=== PATIENT | female | born 1945 | race Caucasian/White ===

== ENCOUNTER → 2018-12-06 | Outpatient (CLI) | payer BC | LOC: M.MRI 11:04 | DX: S83.241A Other tear of medial meniscus, current injury, right knee, initial encounter (principal); M17.11 Unilateral primary osteoarthritis, right knee; M94.261 Chondromalacia, right knee; M25.461 Effusion, right knee; M25.761 Osteophyte, right knee; X58.XXXA Exposure to other specified factors, initial encounter; Y93.89 Activity, other specified; Y92.89 Other specified places as the place of occurrence of the external cause; Y99.8 Other external cause status ==

== ENCOUNTER 2019-01-03 06:57 | Inpatient (IN) | payer BC ==
[2018-12-22 09:16] LABS: HEMATOCRIT 38.4 % (37.0-47.0); MCH 31.7 pg (26.0-34.0); MCHC 33.8 g/dL (28.0-37.0); MCV 93.8 fL (80.0-100.0); MPV 7.9 fl. (7.2-11.1); RBC 4.09 mil/uL (4.20-5.00); RDW-CV 14.9 % (10.5-14.5)
[2018-12-22 09:22] LABS: PROTIME 10.5 Seconds (9.20-11.50)
[2018-12-22 09:31] LABS: ALBUMIN 3.3 g/dL (3.4-5.0); CALCIUM 8.9 mg/dL (8.5-10.1); CREATININE 1.1 mg/dL (0.6-1.3); TOTAL BILIRUBIN 0.3 mg/dL (<0.1-1.0); TOTAL PROTEIN 6.6 g/dL (6.4-8.2)
[2018-12-22 10:43] LABS: URINE CLARITY CLEAR; URINE COLOR YELLOW
[2018-12-22 10:44] LABS: URINE GLUCOSE-RANDOM NEGATIVE (Negative); URINE KETONES NEGATIVE (Negative); URINE PROTEIN NEGATIVE (Negative); URINE SPECIFIC GRAVITY <= 1.005 (1.005-1.030)
[2018-12-22 10:45] LABS: URINE BILIRUBIN NEGATIVE (Negative); URINE BLOOD NEGATIVE (Negative); URINE LEUKOCYTES-REFLEX 1+ (Negative); URINE NITRITE-REFLEX NEGATIVE (Negative); URINE UROBILINOGEN 0.2 E.U./dl (0.2-1.0)
[2018-12-22 10:48] LABS: BACTERIA-REFLEX None Seen /HPF (None Seen); CASTS None Seen /LPF (None Seen); CRYSTALS None Seen /LPF (None Seen); MUCUS None Seen strn/LPF (None Seen); SQUAMOUS 0-3 Few /LPF (0-3); URINE RBC None Seen /HPF (0-2); URINE WBC-REFLEX 0-5 Rare /HPF (0-5)
--- NOTE | 2018-12-22 17:21 | EKG ---
[place] [address] ELECTROCARDIOGRAM REPORT Name: OSVALDO MORAN ANETA Room: [address]#: [id number] Admission: 01/03/19 Attend Phys: Marshal España Discharge: 01/05/19 Date of : 47 Report #: [id number] THIS REPORT FOR: //name// [facility] Test Date: 2018-12-22 Test Time: 09:29:56 Pat Name: OSVALDO MORAN Department: Room: Gender: Russian Language Professor: RT : 1945 Requested By: Matty Acevedo Order Number: [id number] MD: Austyn Jameson Measurements Intervals [place] Rate: 54 P: 17 [place]: 153 QRS: 34 QRSD: 93 T: 42 QT: 476 QTc: 452 Interpretive Statements Sinus rhythm No previous ECG available for comparison Electronically Signed On 12-22-2018 17:21:06 CDT by Austyn Jameson [email or web address] <ELECTRONICALLY SIGNED> By: Austyn Jameson MD, FACC 12/22/18 1721 0929 8 Austyn Jameson MD, FACC /EPI
[~2019-01-03] VITALS: Ht 154.9 cm; Wt 86.2 kg
[~2019-01-03 06:57] MED LIST: AZOPT OPHTH1 %/10 M1 TOP; BIOTIN10000 MC1 PO; CARDIZEM CD120 MG PO; FUROSEMIDE 40 M40 M1 PO; GLIPIZIDE 10 MG10 MG PO; HYDROCODON-ACE1 EAC7 PO; LASIX 20 MG TAB20 MG PO; LIPITOR40 MG PO; LOPRESSOR50 PO; METFORMIN HCL500 MG PO; NEURONTIN 400400 M1 PO; PIOGLITAZONE15 MG; ZESTRIL40 MG PO; ZYLOPRIM300 MG PO
[2019-01-03] MEDS ORDERED: LORCET 5-325 M1 EACH PO (10:31)
[2019-01-03] MEDS ORDERED: AZOPT OPHTH1 %/10 M1 EA. EYE (10:32)
[2019-01-03 14:50] VITALS: BP 134/46
[2019-01-03 16:00] VITALS: BP 128/53
--- NOTE | 2019-01-03 17:12 | NUR ---
PATIENT ARRIVED TO UNIT AT 1445. ALERT AND ORIENTED X4. ASSESSMENT COMPLETED AND CHARTED. VSS ON 2 LITERS 02. MINIMAL PAIN UPON ARRIVAL, STARTED ORAL PAIN MEDICATION BEFORE DINNER. FLUIDS STARTED AND INFUSED ORDERED. PATIENT USED BEDPAN TO VOID WITHOUT ISSUE. FALL PRECAUTIONS IN PLACE. CALL LIGHT WIHTIN REACH. HOURLY ROUNDS COMPLETED. NURSING WILL CONTINUE TO MONITOR.
[2019-01-03 19:27] VITALS: BP 158/63
--- NOTE | 2019-01-03 19:30 | NUR ---
RESTING QUIETLY IN BED WITH VISITORS PRESENT. 02 NC AT TWO LITERS. C[address]. HEMOVAC INTACT WITH SMALL AMOUNT OF BRIGHT RED DRAINAGE PRESENT. YARY WRAP AROUND RIGHT LEG DRY/INTACT. CALL LIGHT WITHIN REACH. BILATERAL FOOT PUMPS. POLAR PACK TO RIGHT KNEE.
[2019-01-04] VITALS: BP 148/78
[2019-01-04 04:00] VITALS: BP 166/68
[2019-01-04 05:04] LABS: HEMATOCRIT 33.6 % (37.0-47.0); HEMOGLOBIN 11.5 gm/dL (12.0-15.0)
--- NOTE | 2019-01-04 06:48 | NUR ---
UP DURING THE NIGHT TO THE BEDSIDE COMMODE TO VOID. RELIEF WITH PAIN MEDS. IV FLUIDS INFUSING. HOURLY ROUNDING IN PROGRESS.
[2019-01-04 07:50] VITALS: BP 151/60
--- NOTE | 2019-01-04 08:49 | NUR ---
DEFER TO PT. NO OT AT THIS TIME UNLESS REFERRED BY PT
--- NOTE | 2019-01-04 12:00 | NUR ---
PT.UP IN CHAIR. DAUGHTER,KHOA,AT BEDSIDE. PT.LIVES AT HOME WITH HER . HE WILL BE ABLE TO HELP HER AT DISCHARGE. DAUGHTER KHOA WILL BE THE ONE TO TAKE HER HOME AND CAN HELP HER ALSO IF NEEDED. PT.HAS A FRONT WHEEL WALKER IN ROOM. WOULD LIKE TO USE [facility] FOR 2 WEEKS AFTER DISCHARGE. CM FAXED REFERRAL TO [facility] . CALLED IN PRESCRIPTION, WRITTEN, TO [facility]ARM[facility] [place]. WILL CALL BACK TO CHECK COPAY.
[2019-01-04 16:35] VITALS: BP 154/59
--- NOTE | 2019-01-04 18:07 | NUR ---
ASSUMED CARE OF PATIENT AT APPROX 0730. ALERT AND ORIENTED X4. ASSESSMENT COMPLETED AND CHARTED. VSS ON ROOM AIR. PAIN MANAGED WITH HYDROCODONE AND OXY IR
--- NOTE | 2019-01-04 18:09 | NUR ---
ASSUMED CARE OF PATIENT AT APPROX 0730. ALERT AND ORIENTED X4. ASSESSMENT COMPLETED AND CHARTED. VSS ON ROOM AIR. PAIN MANAGED WITH NORCO AND OXY IR. HOME MEDS RESTARTED, PATIENT STATED THAT HAVING HER GABAPENTIN HAS EASED HER PAIN ALOT. PATIENT UP WITH ASSIST USING GAIT BELT AND WALKER, WALKING TO THE COMMODE. PATIENT WORKING WITH THERAPIES TODAY AND PROGRESSING TOWARD GOALS. FALL PRECAUTIONS IN PLACE. CALL LIGHT WITHIN REACH. HOURLY ROUNDS COMLETED. NURSING WILL CONTINUE TO MONITOR.
[2019-01-04 20:10] VITALS: BP 180/68
[2019-01-05 00:55] VITALS: BP 163/75
[2019-01-05 03:59] LABS: HEMATOCRIT 31.2 % (37.0-47.0); HEMOGLOBIN 10.2 gm/dL (12.0-15.0)
--- NOTE | 2019-01-05 05:14 | NUR ---
MEDS GIVEN ORDERED. PAIN MANAGED WITH OXY IR. TOLERATED CPM. SLEPT WELL THROUGH THE NIGHT. POLAR CARE IN PLACE. HOURLY ROUNDING COMPLETED. WILL CONTINUE TO MONITOR.
[2019-01-05 09:05] VITALS: BP 159/52
[2019-01-05 12:35] VITALS: BP 159/52
[2019-01-05 13:28] VITALS: BP 159/52
[2019-01-05 13:55] VITALS: BP 159/52
[2019-01-05] MEDS ORDERED: XARELTO10 MG PO ×2 (14:06→14:07)
--- NOTE | 2019-01-05 14:50 | NUR ---
[facility] SAID THEY RECEIVED REFERRAL ON PT.YESTERDAY AND WILL CALL HER TOMORROW TO SET UP APPT. CM FAXED ORDERS TO [facility]. CALLED IN XARELTO PRESCRIPTIONS WRITTEN TO PHARMACY. IT REQUIRED A PRIOR AUTH. ATTEMPTED PRIOR AUTH. INSURANCE WOULD NOT AUTH UNLESS A DIFFERENT BLOOD THINNER WAS USED. AMAN CALLED . ORDER OBTAINED FOR ASA 325MG DAILY X 14 DAYS. CALLED [facility] AND CANCELLED XARELTO. INFORMED PT WOULD BE BRINGING IN SCRIPT FOR PAIN MED BUT XARELTO ON SAME SCRIPT WAS CANCELLED. PT.INFORMED.
[2019-01-05] MEDS ORDERED: PERCOCET 5-3251 EACH PO (14:54)
[2019-01-05] MEDS ORDERED: ASPIRIN325 PO (14:56)
[2019-01-05 15:45] VITALS: BP 159/52
--- NOTE | 2019-01-05 15:45 | NUR ---
DISCHARGE: DISCHARGE INSTRUCTIONS REVIEWED W/ PATIENT, FAMILY MEMBERS PRESENT. PATIENT STATES VERBALLY OF UNDERSTANDING. COPY OF INSTRUCTIONS AND ORIG SCRIPT GIVEN TO PATIENT IN FOLDER. POLAR PACK, CPM, FWW AND PERSONAL BELONGINGS GATHERED PER FAMILY MEMBERS. PATIENT DENIES OTHER NURSING NEEDS AT THIS TIME. ALERT AND ORIENTED THRU SHIFT. SURG DRSG TO KNEE NOTED WNL. THIGH HIGH TEDS ON BLE. ESCORTED TO AWAITING VEHICLE PER WC W/ FAMILY MEMBERS AND STEAK SAUCE MAKER PRESENT. IV CATH SITE DISCONTINUED. COTTON BALL/TAPE APPLIED TO SITE. CATH TIP INTACT. ~TJRN
--- NOTE | 2019-01-19 08:26 | OP ---
[facility] [address] [place] [address] OPERATIVE REPORT Name: OSVALDO MORAN Room: [address] [place] .R.#: [id number] Admission: 01/03/19 Attend Phys: Marshal España Discharge: 01/05/19 Date of : 47 Report #: [id number] THIS REPORT FOR: //name// CC: Sarah Shaffer DATE OF SERVICE: 01/03/2019 PREOPERATIVE DIAGNOSIS: Right knee osteoarthritis. POSTOPERATIVE DIAGNOSIS: Right knee osteoarthritis. PROCEDURE: Right total knee arthroplasty. SURGEON: Matty Acevedo II, DO. TREATER HELPER: MAC Orr. ANESTHESIA: General endotracheal. ESTIMATED BLOOD LOSS: 50 mL. ANTIBIOTICS: Ancef preoperatively. DRAINS: Medium Hemovac. COMPLICATIONS: None. CONDITION: Stable to recovery room. IMPLANTS: Listed in the operative record and progress note. BRIEF HISTORY: The patient was seen in the preoperative area. Preoperative H and P was performed. Site was marked, questions were answered. Risks and benefits were discussed with the patient in detail about surgery. The patient wished to proceed, assuming all risks. DESCRIPTION OF PROCEDURE: The patient was taken to the operative suite and placed supine on the operative table in appropriate anesthesia. A well-padded tourniquet was applied to the upper thigh, which was inflated to 300 mmHg after gravity exsanguination. The operative knee was sterilely prepped and draped. Surgery began by midline incision. This was carried down to the subcutaneous tissues. A medial parapatellar arthrotomy was performed and carried down to bone. The patella was then everted and excess soft tissue removed from around the femur. Femoral cutting block was then applied, checked with a drop rose mary for [address] [address] OPERATIVE REPORT Name: DEANOSVALDO ANETA Room: [address]#: [id number] Admission: 01/03/19 Attend Phys: Marshal España Discharge: 01/05/19 Date of : 47 Report #: [id number] rotational alignment, pinned in appropriate position and appropriate cuts were made. A 4-in-one cutting block was then applied, checked for rotational alignment, pinned in appropriate position and appropriate cuts were made. The tibia was then exposed and excess meniscus was removed. Retractor was placed along the collateral ligaments. The tibial cutting block was then applied, pinned in appropriate position, checked with drop rose mary for rotational alignment and slope and appropriate cut was made. The tibial bone was removed. The tibial base plate was then applied, checked for rotational alignment with drop rose mary and pinned in appropriate position. Femur was then applied and box cut was reamed. This was then trialed with appropriate spacer, which showed excellent fit and fill and excellent stability of the knee through all range of motion. The patella was then reamed in appropriate fashion and sized to appropriate size. Three peg holes were drilled. It was then trialed and showed excellent flexion, extension, excellent tracking of the patella within the groove. These trials were then removed. The tibia was punched in appropriate fashion. Bone ends were cleansed with Pulsavac irrigation and cement was mixed and applied to final implants. These were then malleted into position and held the knee in extension and compressed to allow cement to cure. After it cured, excess was removed using a [place] and osteotome. Wound was then copiously irrigated and the final spacer was then malleted into position. The tourniquet was deflated. Hemostasis was maintained with electrocautery. Pain cocktail was injected. PRP gel was sprayed throughout internal aspects of the knee. Medium Hemovac drain was applied. The capsule was closed with #2 FiberWire and #1 Vicryl in [id number] fashion. Skin was closed with 2-0 Vicryl and running 3-0 Monocryl. Dermabond and sterile dressing applied. Manuel wrap and PolarCare applied. The patient transported to recovery room in stable condition. Counts were correct throughout the procedure. <ELECTRONICALLY SIGNED> By: Matty Acevedo II, DO 01/19/19 0826 [id number] Acevedo II, DO /nt
== END 2019-01-05 15:45 | disposition home health service (06) | DRG 470 ==
LOC: EDSTATUS 06:57 → M.PRE 06:59 → M.TBA 10:01 → M.ORTHSURG 10:01 → M.TBA 10:01 → M.PRE 10:35 → M.ORTHSURG 14:43
PROVIDERS: Orthopaedic Surgery; ADMIT Internal Medicine
PROC: 0SRC0J9 Replacement of Right Knee Joint with Synthetic Substitute, Cemented, Open Approach (ICD-10-PCS; principal; 2019-01-03)
DX: M17.11 Unilateral primary osteoarthritis, right knee (principal); D62 Acute posthemorrhagic anemia; E11.9 Type 2 diabetes mellitus without complications; M10.9 Gout, unspecified; E78.5 Hyperlipidemia, unspecified; I10 Essential (primary) hypertension; Z90.710 Acquired absence of both cervix and uterus; Z88.8 Allergy status to other drugs, medicaments and biological substances; Z79.899 Other long term (current) drug therapy